=== PATIENT | male | born 1990 | race Caucasian/White ===

== ENCOUNTER 2016-08-27 02:57 | Emergency (ER) | payer SELFPAY ==
[~2016-08-27] VITALS: Ht 165.1 cm; Wt 70.3 kg
[2016-08-27 03:00] VITALS: BP 153/88; PULSE 89; RESP 18; TEMP 97.7; O2SAT 99
--- NOTE | 2016-08-27 03:00 | NUR ---
Placed in [place] . Brought in law enforcement custody. Report given to MARISA Jc.
--- NOTE | 2016-08-27 03:05 | NUR ---
Pt was stopped for routine traffic stop. P brought him in for BA draw. Pt states he is in no pain or discomfort. Will continue to monitor. No other injuries or complaints mentioned/noted. No distress noted.
--- NOTE | 2016-08-27 03:14 | NUR ---
Written and verbal consent obtained from patient for blood alcohol, name and verified by patient. Disinfected patient's skin with iodine that did not contain alcohol or other volatile organic compound. Collected the blood from the subject named by venipuncture, in the presence of Officer Jose. Used a sterile, dry hypodermic needle and dry vacuum blood collection. The dry vacuum blood collection was supplied by the officer named above. Withdrew a specimen of blood from Right arm of the subject named above. Inverted the blood tube several times to ensure that the preservative and anticoagulant were thoroughly mixed in the blood specimen. I initialed the blood tube label for identification. The labeled blood tube was handed directly to the Officer named above. The blood tube stopper remained in place while I had possession of the blood tube. The Officer placed tube into envelope and sealed it in my presence. Envelope initialed by myself and Officer named above. Patient tolerated well, bandage applied, and bleeding controlled.
[2016-08-27 03:20] VITALS: BP 153/88; PULSE 89; RESP 18; TEMP 97.7; O2SAT 99
--- NOTE | 2016-08-27 03:20 | NUR ---
Pt discharged from ER into P custody via ambulation with handcuffs. AAOx4. No distress noted.
== END 2016-08-27 03:20 ==
LOC: SED 02:57
DX: Z02.89 Encounter for other administrative examinations (principal)
CPT/HCPCS: 99283